=== PATIENT | male | born 1985 | race Caucasian/White ===

== ENCOUNTER 2020-10-14 12:43 | Emergency (ER) | payer SELFPAY ==
[~2020-10-14] VITALS: Ht 180.3 cm; Wt 89.3 kg
[2020-10-14 12:45] VITALS: BP 130/79
--- NOTE | 2020-10-14 13:17 | Diagnostic Imaging Report ---
EXAMINATION: Right hand at 1257 hours. INDICATION: Injury, hand pain. FINDINGS: There is no fracture, dislocation or acute bony abnormality identified. There is mild deformity of the 5th metacarpal shaft. This may be a sequela of prior trauma. The soft tissues are unremarkable. IMPRESSION: There is no evidence for an acute bony abnormality. Dictated by: Dictated on workstation # [id number]
--- NOTE | 2020-10-14 13:24 | Diagnostic Imaging Report ---
INDICATION: Trauma, pain COMPARISON: Imaging of the hand from the same date TECHNIQUE: Three radiographs of the right wrist dated 10/14/2020 FINDINGS: No acute fracture or dislocation. No destructive osseous process. Mild deformity of the 5th metacarpal is noted with slightly increased bowing. Carpal alignment is well-maintained. No suspicious radiopaque foreign body. IMPRESSION: No acute osseous abnormality. Mild deformity of the 5th metacarpal shaft, likely related to remote chronic posttraumatic deformity. Dictated by: Dictated on workstation # [id number]
--- NOTE | 2020-10-14 13:37 | ED Upper Extremity ---
General Chief Complaint: Upper Extremity Stated Complaint: RT HAND INJ Nursing Triage Note: Patient presents to the ED with c/o of right hand/wrist pain. He states that he punched his truck on Saturday and since then his wrist has been red, swollen,and painful. Nursing Sepsis Screen: No Definite Risk Source: patient Exam Limitations: no limitations History of Present Illness Date Seen by Provider: October 14, 2020 Time Seen by Provider: 12:30 Initial Comments Patient is a 35-year-old right-handed male who presents with right dorsal wrist pain tenderness and swelling x5 days after punching a metal truck door. Patient states he has pain with use of left thumb index and middle fingers. There is no obvious deformity or malalignment. Patient does have diffuse tenderness over the dorsum of the proximal and distal radial wrist. There is no anatomical snuff tenderness. Sensation is intact throughout. Patient has not sought care for this injury prior to today's ED visit. Onset: just prior to arrival Pain/Injury Location: right wrist Method of Injury: other Modifying Factors: Improves With Other Allergies and Home Medications Allergies Coded Allergies: No Known Drug Allergies (Unverified , 10/14/20) Patient Home Medication List Home Medication List Reviewed: Yes Review of Systems Constitutional: see HPI EENTM: see HPI Respiratory: see HPI Cardiovascular: see HPI Genitourinary: see HPI Musculoskeletal: see HPI Skin: see HPI Psychiatric/Neurological: See HPI All Other Systems Reviewed Negative Unless Noted: Yes Past [id number]-[id number] Hx Past Med/Social Hx: Reviewed Nursing Past Med/Soc Hx Patient Social History Alcohol Use: Denies Use Smoking Status: Never a Smoker 2nd Hand Smoke Exposure: No Recent Infectious Disease Expo: No Recent Hopitalizations: No Seasonal Allergies Seasonal Allergies: No Past Medical History Surgeries: No Respiratory: No Cardiac: No Neurological: No Genitourinary: No Gastrointestinal: No Musculoskeletal: No Endocrine: No HEENT: No Cancer: No Psychosocial: No Integumentary: No Blood Disorders: No Physical Exam Vital Signs Vital Signs - First Documented 10/14/20 12:45 Temp 36.7 Pulse 96 Resp 16 B/P (MAP) 130/79 (96) Pulse Ox 100 O2 Delivery Room Air Capillary Refill : Less Than 3 Seconds Height, Weight, BMI Height: '" Weight: lbs. oz. kg; 27.00 BMI Method: General Appearance: no apparent distress Wrist: Yes bone tenderness, Yes limited ROM, Yes pain, Yes soft tissue tenderness, Yes swelling Hand: bone tenderness, limited ROM, soft tissue tenderness, stiffness, swelling Neurologic/Tendon: normal sensation Neurologic/Psychiatric: normal mood/affect, oriented x 3 Progress/Results/Core Measures Results/Orders My Orders Orders - HERBIE BATISTA DO Hand 3 View Right (10/14/20 12:50) Wrist 3 View Right (10/14/20 12:50) Vital Signs/I&O 10/14/20 12:45 Temp 36.7 Pulse 96 Resp 16 B/P (MAP) 130/79 (96) Pulse Ox 100 O2 Delivery Room Air Blood Pressure Mean: 96 Departure Communication (Admissions) Right wrist/hand: No obvious displaced fracture. Patient placed in thumb spica splint and instructed to follow-up with local PCP. He may benefit from outpatient CT if symptoms persist. Impression Primary Impression: Right wrist injury Disposition: HOME, SELF-CARE Condition: Stable Departure-Patient Inst. Decision time for Depature: 13:38 Referrals: NO,LOCAL PHYSICIAN (PCP/Family) Primary Care Physician Patient Instructions: Common Wrist Injuries Add. Discharge Instructions: Please wear your thumb spica splint and take ibuprofen and tramadol for pain. Follow-up with your local PCP in 2 to 3 days for reevaluation. If your symptoms persist you may benefit from an outpatient CT scan for further evaluation and outpatient orthopaedic referral. All discharge instructions reviewed with patient and/or family. Voiced understanding. Scripts Tramadol HCl (Tramadol HCl) 50 Mg Tablet 50 MG PO Q6H PRN for PAIN for 3 Days, #10 TAB 0 Refills Prov: HERBIE BATISTA DO 10/14/20 HERBIE BATISTA DO October 14, 2020 13:37
[2020-10-14] MEDS ORDERED: TRM50T PO (13:39)
[2020-10-14] MEDS ORDERED: oxyCODONE/APAP 5/325MG (PERCOCET 5) TABLET PO ONE (14:00)
== END 2020-10-14 14:13 | disposition home or self-care (01) ==
LOC: ER FS 12:45
DX: S69.91XA Unspecified injury of right wrist, hand and finger(s), initial encounter (principal); W22.8XXA Striking against or struck by other objects, initial encounter
CPT/HCPCS: 73110; 73130